=== PATIENT | female | born 1985 | race Caucasian/White ===

== ENCOUNTER 2016-11-08 22:22 | Emergency (ER) | payer SELFPAY ==
[~2016-11-08] VITALS: Ht 162.6 cm; Wt 54.0 kg
[~2016-11-08 22:22] MED LIST: CETI10CA PO; FLUT9.9S NASAL; GUAI473L22 PO; IBUP-1542 PO
[2016-11-08 22:36] VITALS: Ht 162.6 cm; Wt 54.0 kg
[2016-11-08] MEDS ORDERED: KETOROLAC 30 MG INJ IM STA (23:51)
[2016-11-09 00:34] LABS: ADD SCAN DIFF NO
[2016-11-09 00:37] LABS: BASOPHILS % 0.2 % (0.0-2.0); EOSINOPHILS # 0.1 10^3/ul (0.0-0.5); EOSINOPHILS % 1.1 % (0.0-7.0); HEMATOCRIT 41.5 % (37.0-47.0); LYMPHOCYTES # 1.9 10^3/ul (0.8-2.9); LYMPHOCYTES % 20.9 % (15.0-51.0); MEAN CORPUSCULAR HEMOGLOBIN 30.6 pg (29.0-33.0); MEAN CORPUSCULAR HGB CONC 33.7 g/dl (32.0-37.0); MEAN CORPUSCULAR VOLUME 90.8 fl (82.0-101.0); MONOCYTE # 0.8 10^3/ul (0.3-0.9); MONOCYTES % 8.3 % (0.0-11.0); NEUTROPHIL # 6.2 10^3/ul (1.6-7.5); NEUTROPHILS % 69.3 % (39.0-77.0); PLATELET COUNT 259 10^3/UL (140-415); RED BLOOD COUNT 4.57 10^6/ul (4.20-5.40); RED CELL DISTRIBUTION WIDTH 11.8 % (11.5-14.5)
[2016-11-09 00:51] LABS: ALBUMIN 4.6 g/dl (3.3-4.9); ALBUMIN/GLOBULIN RATIO 1.35; BILIRUBIN,INDIRECT 0.2 mg/dl (0-1.1); BILIRUBIN,TOTAL 0.2 mg/dl (0.2-1.3); CALCIUM 9.2 mg/dl (8.4-10.2); CREATININE 0.9 mg/dl (0.44-1.00); POTASSIUM 4.1 mmol/L (3.5-5.1)
--- NOTE | 2016-11-09 02:20 | RADRPT ---
PROCEDURE: Abdominal ultrasound, limited. CLINICAL INDICATION: Abdominal pain. TECHNIQUE: Multiple real-time images were acquired of the patient's right upper abdomen utilizing a high resolution transducer. COMPARISON: None FINDINGS: The liver demonstrates normal echogenicity and size measuring 15.5 cm. There is no focal mass or in trahepatic biliary ductal dilatation. The portal vein is patent. The gallbladder is contracted. N o gallstones are identified. There is no pericholecystic fluid or gallbladder wall thickening. The common bile duct measures 2.9 mm in maximal dimension. The visualized portions of the pancreas are unremarkable. No free fluid is identified. The right kidney is normal size and echogenicity measuring 10.5 cm. There is no focal renal mass or echogenic calculus identified. There is no obstructive uropathy. IMPRESSION: Unremarkable right upper abdominal ultrasound. .Oneil Nicholas MD, MD Date Time Electronically viewed and signed by .Oneil Nicholas MD, MD on 11/09/2016 02:19 .T/
[2016-11-09 02:39] LABS: URINE BLOOD (Dip) POC Trace-intact (NEGATIVE)
[2016-11-09] MEDS ORDERED: SUCR1TAB56 PO (02:40)
[2016-11-09] MEDS ORDERED: HYDR-906 PO (02:40)
[2016-11-09] MEDS ORDERED: ONDA4TAB8 PO (02:40)
[2016-11-09] MEDS ORDERED: ACET325T33 PO (02:40)
[2016-11-09] MEDS ORDERED: HYDROCODONE/APAP (5/325) TAB PO ONE (03:00)
[2016-11-09] MEDS ORDERED: KETOROLAC 15 MG INJ IM STA (03:04)
[2016-11-09 03:49] VITALS: BP 142/87; PULSE 77; RESP 17; TEMP 99
--- NOTE | 2016-11-09 04:01 | ERD ---
ER Documentation Chief Complaint Date/Time DATE: 11/09/16 TIME: 03:51 Chief Complaint abdominal/epigastric pain x 10 days HPI This is a 30-year-old female who presents to the ED with continuous epigastric pain, nausea and vomiting for 4 days. Patient describes her epigastric pain as gradual yet sharp, and is aggravated after eating. Patient has been taking OTC antacids with minimal relief. Denies any recent history of fever, cough, chest pain, shortness of breath, diarrhea or dysuria. Past medical history of migraine and surgical history of appendectomy. Denies any recent sick contacts or foreign travel. ROS All systems reviewed and are negative except as per history of present illness. Medications Home Meds Active Scripts Sucralfate* (Carafate*) 1 Gm Tab, 1 GM PO QID for 30 Days, TAB Prov:ROSEMARIE BE 11/09/16 Acetaminophen* (Tylenol*) 325 Mg Tablet, 2 TAB PO Q4 Y for PAIN AND OR ELEVATED TEMP, #30 TAB Prov:ROSEMARIE BE 11/09/16 Ondansetron Hcl* (Zofran*) 4 Mg Tablet, 4 MG PO Q6H for NAUSEA AND/OR VOMITING, #30 TAB Prov:ROSEMARIE BE 11/09/16 Hydrocodone/Acetaminophen (Jolon 5-325 Tablet) 1 Each Tablet, 1 TAB PO Q6H Y for PAIN, #10 TAB Prov:ROSEMARIE BE 11/09/16 Cetirizine Hcl* (Zyrtec*) 10 Mg Capsule, 10 MG PO DAILY, #30 TAB.CHEW Prov:DANAE RUSSO NP 06/10/16 Fluticasone Propionate (Flonase Allergy Relief) 9.9 Ml Ulman.susp, 1 SPRAY NASAL BID, #1 BOTTLE TO EACH NOSTRIL Prov:DANAE RUSSO NP 06/10/16 Ibuprofen* (Motrin*) 600 Mg Tab, 600 MG PO Q6H Y for PAIN AND OR ELEVATED TEMP, #30 TAB Prov:DANAE RUSSO NP 06/10/16 Guaifenesin-Codeine Phosphate* (Guaifenesin* AC Cough Syrup) 473 Ml Liquid, 10 ML PO Q4H Y for COUGH, #120 ML Prov:DANAE RUSOS NP 06/10/16 Allergies Allergies: Coded Allergies: Sulfa (Sulfonamide Antibiotics) (Verified Allergy, Unknown, 11/08/16) PMhx/Soc Medical and Surgical Hx: pt denies Medical Hx, pt denies Surgical Hx Hx Alcohol Use: No Hx Substance Use: No Hx Tobacco Use: No Smoking Status: Never smoker Physical Exam Vitals Vital Signs Date Time Temp Pulse Resp B/P Pulse Ox O2 Delivery O2 Flow Rate FiO2 11/08/16 22:36 99.2 86 20 160/94 100 Physical Exam Physical Exam CONST: Well-developed, well-nourished, in no acute distress. Nontoxic in appearance. HEENT: Atraumatic. Normal conjunctiva. EOM intact. TM intact. External ear is normal. Clear oropharnyx without erythema. No uvular deviation. Moist mucous membranes. Supple neck. No meningismus. No submandibular induration. RESP: Clear to auscultation bilaterally. No wheezing. CARDIO: Regular rate and rhythm, no murmurs. ABD: Tenderness on the epigastric area, otherwise abdomen is soft and nontender distended. Normal bowel sounds. No McBurney's point tenderness. No guarding or rigidity. No peritoneal signs. SKIN: No petechiae or rashes. BACK: No midline or flank tenderness. EXT: No cyanosis or edema. Distal pulses equal and bilateral. NEURO: Awake and alert, appropriate for age. 5/5 strength in all extremities. Normal speech. Steady gait. Result Diagram: 11/08/16 0021 11/08/16 0021 Results 24 hrs Laboratory Tests Test 11/08/16 00:21 11/09/16 02:40 White Blood Count 9.010^3/ul Red Blood Count 4.5710^6/ul Hemoglobin 14.0g/dl Hematocrit 41.5% Mean Corpuscular Volume 90.8fl Mean Corpuscular Hemoglobin 30.6pg Mean Corpuscular Hemoglobin Concent 33.7g/dl Red Cell Distribution Width 11.8% Platelet Count 51744^3/UL Mean Platelet Volume 10.0fl Neutrophils % 69.3% Lymphocytes % 20.9% Monocytes % 8.3% Eosinophils % 1.1% Basophils % 0.2% Nucleated Red Blood Cells % 0.0/100WBC Neutrophils # 6.210^3/ul Lymphocytes # 1.910^3/ul Monocytes # 0.810^3/ul Eosinophils # 0.110^3/ul Basophils # 0.010^3/ul Nucleated Red Blood Cells # 0.010^3/ul Sodium Level 139mmol/L Potassium Level 4.1mmol/L Chloride Level 102mmol/L Carbon Dioxide Level 27mmol/L Anion Gap 14 Blood Urea Nitrogen 13mg/dl Creatinine 0.90mg/dl Glucose Level 93mg/dl Calcium Level 9.2mg/dl Total Bilirubin 0.2mg/dl Direct Bilirubin 0.00mg/dl Indirect Bilirubin 0.2mg/dl Aspartate Amino Transf (AST/SGOT) 31IU/L Alanine Aminotransferase (ALT/SGPT) 42IU/L Alkaline Phosphatase 75IU/L Total Protein 8.0g/dl Albumin 4.6g/dl Globulin 3.40g/dl Albumin/Globulin Ratio 1.35 Lipase 155U/L Bedside Urine pH (LAB) 7.0 Bedside Urine Protein (LAB) Negative Bedside Urine Glucose (UA) Negative Bedside Urine Ketones (LAB) Negative Bedside Urine Blood Trace-intact Bedside Urine Nitrite (LAB) Negative Bedside Urine Leukocyte Esterase (L Negative Current Medications Medications (Trade) Dose Ordered Sig/Earl Route PRN Reason Start Time Stop Time Status Last Admin Dose Admin Ketorolac Tromethamine (Toradol) 30 mg ONCE STAT IM 11/08/16 23:51 11/08/16 23:53 DC 11/09/16 00:28 Acetaminophen/ Hydrocodone Bitart (Jolon (5/325)) 1 tab ONCE ONCE PO 11/09/16 03:00 11/09/16 03:06 DC 11/09/16 03:00 Ketorolac Tromethamine (Toradol) 15 mg ONCE STAT IM 11/09/16 03:04 11/09/16 03:06 DC 11/09/16 03:27 PROCEDURE: Abdominal ultrasound, limited. CLINICAL INDICATION: Abdominal pain. TECHNIQUE: Multiple real-time images were acquired of the patient's right upper abdomen utilizing a high resolution transducer. COMPARISON: None FINDINGS: The liver demonstrates normal echogenicity and size measuring 15.5 cm. There is no focal mass or intrahepatic biliary ductal dilatation. The portal vein is patent. The gallbladder is contracted. No gallstones are identified. There is no pericholecystic fluid or gallbladder wall thickening. The common bile duct measures 2.9 mm in maximal dimension. The visualized portions of the pancreas are unremarkable. No free fluid is identified. The right kidney is normal size and echogenicity measuring 10.5 cm. There is no focal renal mass or echogenic calculus identified. There is no obstructive uropathy. IMPRESSION: Unremarkable right upper abdominal ultrasound. Procedures/MDM EMERGENCY DEPARTMENT COURSE/MEDICAL DECISION MAKING This is a 31 female who comes to the emergency room secondary to complaints of epigastric pain, nausea and vomiting 4 days. I have ordered Toradol 30 mg IM for pain management. I have ordered ultrasound gallbladder due to epigastric pain to rule out cholecystitis. It was interpreted by the radiologist and result is unremarkable CBC,CMP, lipase and urinalysis were ordered. Trace blood was noted and urinalysis and the rest of her lab results are unremarkable. I believe her epigastric pain might be caused by a viral gastroenteritis or gastric ulcer. Patient will need an EGD as an outpatient. My primary diagnosis is epigastric pain. Secondary diagnosis is nausea and vomiting Differential diagnoses considered but not limited to acute appendicitis, diverticulitis, pancreatitis, cholecystitis, gastritis, pyelonephritis, UTI, constipation, inflammatory bowel disease, ectopic , ovarian torsion.. Pt is hemodynamically stable upon reassessment. Patient received another dose of Toradol 50 mg IM during re-assessment. The patient was discharged for outpatient management with a prescription for Jolon, sucralfate, Tylenol and Zofran. The patient was advised to see a content administrator for an outpatient EGD. Patient was also instructed to followup with their PMD in 1-2 days and to return to the Emergency Department if there are any new or worsening symptoms. The patient understood and agreed with the diagnosis, treatment and plan. Patient is stable for discharge at this time. Departure Diagnosis: Primary Impression: Epigastric pain Additional Impression: Nausea & vomiting Vomiting type: unspecified Vomiting Intractability: intractable Qualified Code: R11.2 - Intractable vomiting with nausea, unspecified vomiting type Condition: Stable Patient Instructions: Nausea and Vomiting-Adult, Epigastric Pain (Uncertain Cause) Referrals: COMMUNITY CLINICS YOU HAVE RECEIVED A MEDICAL SCREENING EXAM AND THE RESULTS INDICATE THAT YOU DO NOT HAVE A CONDITION THAT REQUIRES URGENT TREATMENT IN THE EMERGENCY DEPARTMENT. FURTHER EVALUATION AND TREATMENT OF YOUR CONDITION CAN WAIT UNTIL YOU ARE SEEN IN YOUR DOCTORS OFFICE WITHIN THE NEXT 1-2 DAYS. IT IS YOUR RESPONSIBILITY TO MAKE AN APPOINTMENT FOR FOLOW-UP CARE. IF YOU HAVE A PRIMARY DOCTOR --you should call your primary doctor and schedule an appointment IF YOU DO NOT HAVE A PRIMARY DOCTOR YOU CAN CALL OUR PHYSICIAN REFERRAL HOTLINE AT IF YOU CAN NOT AFFORD TO SEE A PHYSICIAN YOU CAN CHOSE FROM THE FOLLOWING [facility] [address] [facility] [address] [facility] [address] [facility] [address] [facility] [address] [facility]. [facility] [address] [facility]. [facility] YOU HAVE RECEIVED A MEDICAL SCREENING EXAM AND THE RESULTS INDICATE THAT YOU DO NOT HAVE A CONDITION THAT REQUIRES URGENT TREATMENT IN THE EMERGENCY DEPARTMENT. FURTHER EVALUATION AND TREATMENT OF YOUR CONDITION CAN WAIT UNTIL YOU ARE SEEN IN YOUR DOCTORS OFFICE WITHIN THE NEXT 1-2 DAYS. IT IS YOUR RESPONSIBILITY TO MAKE AN APPOINTMENT FOR FOLOW-UP CARE. IF YOU HAVE A PRIMARY DOCTOR --you should call your primary doctor and schedule and appointment IF YOU DO NOT HAVE A PRIMARY DOCTOR YOU CAN CALL OUR PHYSICIAN REFERRAL HOTLINE AT . IF YOU CAN NOT AFFORD TO SEE A PHYSICIAN YOU CAN CHOSE FROM THE FOLLOWING [facility] INSTITUTIONS: [facility] [address] [place] [address] [facility] [address] [place] [address] [facility] [address] [place] [address] Additional Instructions: Call your primary care doctor tomorrow for an appointment during the next 1-2 days and request for an EGD procedure. Return to the emergency department immediately should you have any new or worsening symptoms. Take all medications as directed. ROSEMARIE BE Nov 09, 2016 04:01
== END 2016-11-09 03:50 | disposition home or self-care (01) ==
LOC: FTE 22:22
DX: R10.13 Epigastric pain (principal); R11.2 Nausea with vomiting, unspecified
CPT/HCPCS: 76705; 80053; 81003; 83690; 85025; J1885; 36415; 96372